=== PATIENT | female | born 1980 | race Caucasian/White ===

== ENCOUNTER 2017-02-22 19:05 | Inpatient (IN) | payer SELFPAY ==
[~2017-02-22] VITALS: Ht 172.7 cm; Wt 73.1 kg
[2017-02-22] MEDS ORDERED: FLUO40CA PO (21:08)
[2017-02-22] MEDS ORDERED: TRAM50TA2 PO (21:08)
[2017-02-22] MEDS ORDERED: LEVO125T3 PO (21:15)
[2017-02-22 21:28] LABS: MEAN CORPUSCULAR HEMOGLOBIN 33.8 pg (27.0-33.0); MEAN CORPUSCULAR HGB CONC 35.1 g/dl (32.0-36.5); MEAN CORPUSCULAR VOLUME 96.1 fl (80.0-96.0); RED CELL DISTRIBUTION WIDTH 12.9 % (11.5-14.5); WHITE BLOOD COUNT 4.9 K/mm3 (4.0-10.0)
[2017-02-22 21:32] LABS: METHADONE URINE NEGATIVE (NEGATIVE)
[2017-02-22 21:46] LABS: CONTROL LINE HCG INT CTR LINE PRESENT
[2017-02-22 22:00] LABS: ALBUMIN 4.2 GM/DL (3.2-5.2); ALBUMIN/GLOBULIN RATIO 1.27 (1.00-1.93); ALKALINE PHOSPHATASE 66 U/L (45-117); ALT/SGPT 20 U/L (12-78); ANION GAP 12 MEQ/L (8-16); AST/SGOT 16 U/L (15-37); BILIRUBIN,DIRECT 0.1 MG/DL (0.0-0.2); BILIRUBIN,TOTAL 0.3 MG/DL (0.2-1.0); BLOOD UREA NITROGEN 10 MG/DL (7-18); CALCIUM LEVEL 8.8 MG/DL (8.5-10.1); CARBON DIOXIDE LEVEL 22 MEQ/L (21-32); CHLORIDE LEVEL 109 MEQ/L (98-107); CREATININE FOR GFR 1.06 MG/DL (0.55-1.02); GLOMERULAR FILTRATION RATE > 60.0 (>60); GLUCOSE, FASTING 87 MG/DL (70-105); POTASSIUM SERUM 3.7 MEQ/L (3.5-5.1); SODIUM LEVEL 143 MEQ/L (136-145); TOTAL PROTEIN 7.5 GM/DL (6.4-8.2)
[2017-02-22] MEDS ORDERED: MOM 30ML SUSPENSION UDC PO PRN (23:45)
[2017-02-22] MEDS ORDERED: MAALOX 30 ML SUSP *UDC PO PRN (23:45)
[2017-02-22] MEDS ORDERED: ACETAMINOPHEN TAB 650MG DOSE (2X325MG) PO PRN (23:45)
[2017-02-22] MEDS ORDERED: traZODone 50 MG TAB PO PRN (23:45)
[2017-02-23] MEDS ORDERED: TRAZ50TA4 PO (00:21)
[2017-02-23] MEDS ORDERED: [UNRECOGNIZED DRUG - CODE] PO (00:21)
[2017-02-23] MEDS ORDERED: ASPIRIN 325 MG TAB PO PRN (01:15)
[2017-02-23] MEDS: traMADol 50 MG TAB PO SCH ×2 (01:34→20:56)
[2017-02-23 01:43] VITALS: BP 134/91
[2017-02-23] MEDS: LEVOTHYROXINE 0.125 MG TAB (125 MCG) PO SCH (06:14)
[2017-02-23] MEDS: FLUoxetine 20 MG CAP PO SCH (09:17)
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
[2017-02-23] MEDS ORDERED: MUPIROCIN 2% OINT 22 GM TUBE TOP PRN (11:15)
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
[2017-02-23 18:00] VITALS: BP 129/78
[2017-02-23] MEDS: GABAPENTIN 100 MG CAP PO SCH ×2 (18:06→20:55)
[2017-02-23] MEDS: MIRTAZAPINE 7.5MG PER 1/2 TABLET PO SCH (20:55)
[2017-02-24] MEDS: LEVOTHYROXINE 0.125 MG TAB (125 MCG) PO SCH (06:29)
[2017-02-24 07:13] VITALS: BP 138/85
--- NOTE | 2017-02-24 08:05 | ECGEPIP ---
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
[2017-02-24] MEDS: GABAPENTIN 100 MG CAP PO SCH ×3 (08:11→20:56)
[2017-02-24] MEDS: FLUoxetine 20 MG CAP PO SCH (08:11)
[2017-02-24 18:00] VITALS: BP 127/84
[2017-02-24] MEDS: MIRTAZAPINE 7.5MG PER 1/2 TABLET PO SCH (20:56)
[2017-02-24] MEDS: traMADol 50 MG TAB PO SCH (20:57)
[2017-02-25] MEDS: LEVOTHYROXINE 0.125 MG TAB (125 MCG) PO SCH (06:07)
[2017-02-25 06:49] VITALS: BP 129/84
[2017-02-25] MEDS: GABAPENTIN 100 MG CAP PO SCH ×3 (08:55→20:41)
[2017-02-25] MEDS: FLUoxetine 20 MG CAP PO SCH (08:55)
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
[2017-02-25 18:00] VITALS: BP 128/83
--- NOTE | 2017-02-25 19:54 | IPN ---
DATE: 02/25/2017 Patient is in good mood. Eye contact is good. No difficulties with appetite or sleep. No significant complaints. Patient wanting to know her discharge plans. MENTAL STATUS EXAMINATION: Her speech is normal. Thought process is intact. No loose associations. No abnormal psychotic thoughts. Judgment and insight improved. Orientation full in three spheres. Recent and remote memory intact. Attention and concentration intact. No disturbance of language. Full fund of knowledge. Mood improved. Affect bright. DIAGNOSIS: Major depressive illness. DISCHARGE PLANNING: As per Megan Sainz.
[2017-02-25] MEDS: MIRTAZAPINE 7.5MG PER 1/2 TABLET PO SCH (20:41)
[2017-02-25] MEDS: traMADol 50 MG TAB PO SCH (20:42)
[2017-02-26 06:12] VITALS: BP 115/67
[2017-02-26] MEDS: LEVOTHYROXINE 0.125 MG TAB (125 MCG) PO SCH (06:21)
[2017-02-26] MEDS: GABAPENTIN 100 MG CAP PO SCH ×2 (08:06→15:48)
[2017-02-26] MEDS: FLUoxetine 20 MG CAP PO SCH (08:06)
--- NOTE | 2017-02-26 14:09 | IPNPDOC ---
[facility] Progress Note Progress Note DATE OF SERVICE: 02/26/17 HISTORY: Patient is a 36-year-old female, who was brought in to [facility] ER by the [facility] police who found patient fully clothed in a bathtub with a razor blade and superficial cuts to her right wrist. Patient informed ER staff that she is an [employer] and has been diagnosed with PTSD, indicated SIB is a means to release stress for her. Patient indicates she feels better today, notes she participated in some groups over the weekend and feels she had time to "think about things," and is indicating she has decided to go with sister back to [place] and take her son to stay indefinitely. Patient denies symptoms of depression, rates anxiety 2/10 , denies suicidal and homicidal ideation, denies audiovisual hallucinations, denies urge to engage in self-injurious behavior. Patient informs promotion writer she is sleeping "much better," indicates Remeron is effective and she reports reduction to nightmare symptoms, continues to deny prazosin med trial in effort to control symptoms. Patient states gabapentin has been effective in controlling symptoms of anxiety, is today requesting to take medication on PRN basis noting she does not feel she needs to take medication 3 times per day. Patient denies all symptoms of chest pain, palpitations, shortness of breath, dizziness, headache. Patient reports improvement energy level, notes appetite is stable, and denies challenges with concentration and focus. Patient denies physical pain time of interaction and presents with no signs of acute distress. VITALS: See below NEW TEST RESULTS: No new results PAST MEDICAL/SURGICAL HISTORY: Tonsillectomy, tubal ligation, uterine ablation, history of TBI 8 years ago as a result of training injury, chronic headaches, hypothyroidism, history of prolonged QT syndrome. Lab results at time of admission indicated low RBCs and elevated MCV, MCH, chloride, creatinine. Patient has superficial laceration to right forearm HCG negative UDS negative, EtoH .077 02/24/17 EKG Normal sinus rhythm with PVC Left ventricular hypertrophy with repolarization abnormality Comparison tracing not on file MENTAL STATUS EXAMINATION: General appearance: Patient is a -year old female, who is pleasant and cooperative, makes good eye contact today, exhibits good personal hygiene and is dressed in hospital clothing, and relates with steady gait, appears stated age. Speech: Of normal rate, rhythm, volume, spontaneous, coherent Thought processes: Linear, logical, goal-directed Thought content: Rational, logical. Abstract reasoning and computation: Appears intact. Description of associations: Intact. Description of abnormal or psychotic thoughts: Denies suicidal or homicidal ideation, denies auditory or visual hallucinations, does not appear to be responding to internal stimuli. Patient does not appear to be experiencing bizarre or paranoid ideation, and denies preoccupation with violence or obsessions. Judgment: Appears adequate, has improved during treatment Insight: Is improving with treatment, appears adequate Orientation: A and O 3. Recent and remote memory: Appears intact. Attention span and concentration: Adequate. Fund of knowledge: Adequate. Mood: "Much better, pretty good." Patient appears noticeably less depressed, is more relaxed and less anxious, no mood lability noted Affect: Constricted but brightens, congruent with mood. DIAGNOSES: MDD, recurrent, moderate, rule out alcohol use disorder, rule out PTSD, rule out anxiety disorder ASSESSMENT: Patient continues to adjust to unit, has been more visible and has been attending some groups. Patient has been pleasant and cooperative and has presented with no behavior management challenges. Patient continues to take Prozac which was prescribed by [facility], notes medication is effective now that she is getting regular sleep with utilization of Remeron, denies medication side effects. Patient has also been taking gabapentin TID which she is today requesting to be changed to a PRN order due to feeling she does not need to take the medication as often. Patient again climbs prazosin trial in effort to reduce nightmare symptoms, indicates she will address with outpatient provider if she feels is needed. Patient denies suicidal and homicidal ideation and is able to verbalize how to access supportive services on the unit if needed. Will monitor patient's response to medications and monitor for side effects. Will also evaluate patient's safety, resolution of suicidal ideation, and discharge readiness. Patient indicates her sister has arrived from [place] and verifies that discharge plan is now for her to return to [place] with her son and sister upon discharge. Patient was informed that discharge is tentatively scheduled for Sunday in effort to further stabilize patient on medications and to allow transaction coordinator to ensure that outpatient services are in place for patient at [facility]. Patient indicates she is comfortable with plan. Will continue to monitor patient's response to medications and monitor for side effects, will evaluate patient's safety, resolution of SIB/SI, and we' ll begin to prepare patient for discharge on Sunday. MANAGEMENT PLAN: Continue Prozac 40 mg po q am and Remeron 7.5 mg q hs. Change gabapentin to 100 mg po TID PRN anxiety Maintain safety precautions Patient to attend groups and participate in unit programming to develop coping strategies Engage patient in discharge planning process and arrange meeting with support system to ensure safe discharge planning when appropriate Patient to follow up with PCM upon discharge TIME SPENT: 35 minutes Vital Signs Vital Signs Date Time Temp Pulse Resp B/P (MAP) Pulse Ox O2 Delivery O2 Flow Rate FiO2 02/26/17 06:12 99.1 54 16 115/67 (83) Room Air 02/22/17 23:58 96 Current Medications Current Medications Acetaminophen (Tylenol Tab) 650 mg Q6HP PRN PO HEADACHE or DISCOMFORT Last administered on 02/24/17 15:33; Start 02/22/17 at 23:45; Stop 03/24/17 at 23:44 Al Hydrox/Mg Hydrox/Simethicone (Mylanta) 30 ml Q4HP PRN PO HEARTBURN/ INDIGESTION; Start 02/22/17 at 23:45; Stop 03/24/17 at 23:44 Aspirin (Aspirin) 650 mg Q4HP PRN PO PAIN Last administered on 02/23/17 01:34 ; Start 02/23/17 at 01:15; Stop 03/25/17 at 01:14 Fluoxetine HCl (PROzac) 40 mg DAILY PO Last administered on 02/26/17 08:06; Start 02/23/17 at 09:00; Stop 03/25/17 at 08:59 Gabapentin (Neurontin) 100 mg TID PO Last administered on 02/26/17 08:06; Start 02/23/17 at 16:00; Stop 03/25/17 at 15:59 Home Med (Med Rec Complete!) ASDIRECTED XX ; Start 02/23/17 at 00:30; Stop at 01:11; Status DC Levothyroxine Sodium (Synthroid) 0.125 mg DAILY@06 PO Last administered on 06:21; Start 02/23/17 at 06:00; Stop 03/25/17 at 05:59 Magnesium Hydroxide (Milk Of Magnesia) 30 ml DAILYPRN PRN PO CONSTIPATION; Start 02/22/17 at 23:45; Stop 03/24/17 at 23:44 Mirtazapine (Remeron) 7.5 mg QHS PO Last administered on 02/25/17 20:41; Start 02/23/17 at 21:00; Stop 03/25/17 at 20:59 Mupirocin (Bactroban 2% Ointment) APPLY TO RT FOREARM BID PRN TOP REDNESS/ IRRITATION Last administered on 02/23/17 18:08; Start 02/23/17 at 11:15; Stop 03/25/17 at 11:14 Tramadol HCl (Ultram) 50 mg QHS PO Last administered on 02/25/17 20:42; Start 02/22/17 at 21:00; Stop 03/01/17 at 20:59 Trazodone HCl (Desyrel) 50 mg QHSP PRN PO INSOMNIA; Start 02/22/17 at 23:45; Stop 02/23/17 at 17:45; Status DC Allergies Coded Allergies: Lamotrigine (Verified Allergy, Intermediate, rash, 02/22/17) Valproic Acid (Verified Allergy, Intermediate, N/V, 02/22/17) Megan Sainz February 26, 2017 14:09
[2017-02-26 18:00] VITALS: BP 114/67
[2017-02-26] MEDS: MIRTAZAPINE 7.5MG PER 1/2 TABLET PO SCH (21:17)
[2017-02-26] MEDS: traMADol 50 MG TAB PO SCH (21:17)
[2017-02-26] MEDS: GABAPENTIN 100 MG CAP PO PRN (21:45)
[2017-02-27 06:11] VITALS: BP 113/60
[2017-02-27] MEDS: LEVOTHYROXINE 0.125 MG TAB (125 MCG) PO SCH (06:33)
[2017-02-27] MEDS: FLUoxetine 20 MG CAP PO SCH (08:37)
[2017-02-27] MEDS: GABAPENTIN 100 MG CAP PO PRN ×3 (08:37→20:48)
--- NOTE | 2017-02-27 09:12 | IPNPDOC ---
[facility] Progress Note Progress Note DATE OF SERVICE: 02/27/17 HISTORY: Patient is a 36-year-old female, who was brought in to [facility] ER by the [facility] police who found patient fully clothed in a bathtub with a razor blade and superficial cuts to her right wrist. Patient informed ER staff that she is [employer] and has been diagnosed with PTSD, indicated SIB is a means to release stress for her. Patient indicates she continues to experience improvement in symptoms of anxiety and depression, is participating in most groups, states today she feels she is prepared for discharge tomorrow. Patient rates current anxiety level as 6 /10, depression 3/10, denies suicidal and homicidal ideation, denies audiovisual hallucinations, denies urge to engage in self-injurious behavior. Patient indicates she continues to sleep well on Remeron, reports reduction in nightmare symptoms, has been utilizing gabapentin PRN to address symptoms of anxiety, indicates current medication regimen is effective and she denies medication side effects. Patient continues to deny need for prazosin in effort to control nightmare symptoms. EKG results were reviewed with patient who denies symptoms of chest pain, palpitations, shortness of breath, dizziness, headache. Patient reports improvement energy level, notes appetite is stable, and denies challenges with concentration and focus. Patient denies physical pain time of interaction and presents with no signs of acute distress. VITALS: See below NEW TEST RESULTS: No new results PAST MEDICAL/SURGICAL HISTORY: Tonsillectomy, tubal ligation, uterine ablation, history of TBI 8 years ago as a result of training injury, chronic headaches, hypothyroidism, history of prolonged QT syndrome. Lab results at time of admission indicated low RBCs and elevated MCV, MCH, chloride, creatinine. Patient has superficial laceration to right forearm HCG negative UDS negative, EtoH .077 02/24/17 EKG Normal sinus rhythm with PVC Left ventricular hypertrophy with repolarization abnormality Comparison tracing not on file, clinical consult completed, patient to follow-up with outpatient provider. MENTAL STATUS EXAMINATION: General appearance: Patient is a 36-year old female, who is pleasant and cooperative, makes good eye contact today, exhibits good personal hygiene and is dressed in hospital clothing, and relates with steady gait, appears stated age. Speech: Of normal rate, rhythm, volume, spontaneous, coherent Thought processes: Linear, logical, goal-directed Thought content: Rational, logical. Abstract reasoning and computation: Appears intact. Description of associations: Intact. Description of abnormal or psychotic thoughts: Denies suicidal or homicidal ideation, denies auditory or visual hallucinations, does not appear to be responding to internal stimuli. Patient does not appear to be experiencing bizarre or paranoid ideation, and denies preoccupation with violence or obsessions. Judgment: Appears adequate, has improved during treatment Insight: Is improving with treatment, appears adequate Orientation: A and O 3. Recent and remote memory: Appears intact. Attention span and concentration: Adequate. Fund of knowledge: Adequate. Mood: "Much better." Patient appears less anxious and less depressed, no mood lability noted Affect: Constricted but brightens, congruent with mood. DIAGNOSES: MDD, recurrent, moderate, rule out alcohol use disorder, rule out PTSD, rule out anxiety disorder ASSESSMENT: Patient continues to adjust to unit, has been more visible and has been attending some groups. Patient has been pleasant and cooperative and has presented with no behavior management challenges. Patient indicates current medication regimen is effective and she denies medication side effects. Patient denies suicidal and homicidal ideation and is able to verbalize how to access supportive services on the unit if needed. Will continue to monitor patient's response to medications and monitor for side effects. Will also evaluate patient 's safety, resolution of suicidal ideation, and discharge readiness. Patient's sister has arrived from [place] and regional coordinator is attempting to confirm discharge plan, patient indicates plan remains for her to discharge with son back to [place] with sister where she will stay at least through the summer and we'll then decide if she is going to remain in [place] with sister or return to [place] to her boyfriend. direct mail coordinator is attempting to arrange case management, outpatient psychotherapy, and medication management services through [facility] in [place]. Patient's discharge is tentatively scheduled for tomorrow and patient states she remains comfortable with plan, feels she is prepared for discharge. Will continue to monitor patient's response to medications and monitor for side effects, will evaluate patient's safety, resolution of SIB/SI, and we'll begin to prepare patient for discharge on Sunday. MANAGEMENT PLAN: Continue Prozac 40 mg po q am, Remeron 7.5 mg q hs, and gabapentin 100 mg po TID PRN anxiety Maintain safety precautions Patient to attend groups and participate in unit programming to develop coping strategies Engage patient in discharge planning process and arrange meeting with support system to ensure safe discharge planning when appropriate Patient to follow up with PCM upon discharge TIME SPENT: 35 minutes Vital Signs Vital Signs Date Time Temp Pulse Resp B/P (MAP) Pulse Ox O2 Delivery O2 Flow Rate FiO2 02/27/17 06:11 97.9 51 16 113/60 (77) Room Air 02/22/17 23:58 96 Current Medications Current Medications Acetaminophen (Tylenol Tab) 650 mg Q6HP PRN PO HEADACHE or DISCOMFORT Last administered on 02/24/17 15:33; Start 02/22/17 at 23:45; Stop 03/24/17 at 23:44 Al Hydrox/Mg Hydrox/Simethicone (Mylanta) 30 ml Q4HP PRN PO HEARTBURN/ INDIGESTION; Start 02/22/17 at 23:45; Stop 03/24/17 at 23:44 Aspirin (Aspirin) 650 mg Q4HP PRN PO PAIN Last administered on 02/23/17 01:34 ; Start 02/23/17 at 01:15; Stop 03/25/17 at 01:14 Fluoxetine HCl (PROzac) 40 mg DAILY PO Last administered on 02/27/17 08:37; Start 02/23/17 at 09:00; Stop 03/25/17 at 08:59 Gabapentin (Neurontin) 100 mg TID PO Last administered on 02/26/17 15:48; Start 02/23/17 at 16:00; Stop 02/26/17 at 18:08; Status DC Gabapentin (Neurontin) 100 mg TIDP PRN PO anxiety Last administered on 08:37; Start 02/26/17 at 16:00; Stop 03/28/17 at 15:59 Home Med (Med Rec Complete!) ASDIRECTED XX ; Start 02/23/17 at 00:30; Stop at 01:11; Status DC Levothyroxine Sodium (Synthroid) 0.125 mg DAILY@06 PO Last administered on 06:33; Start 02/23/17 at 06:00; Stop 03/25/17 at 05:59 Magnesium Hydroxide (Milk Of Magnesia) 30 ml DAILYPRN PRN PO CONSTIPATION; Start 02/22/17 at 23:45; Stop 03/24/17 at 23:44 Mirtazapine (Remeron) 7.5 mg QHS PO Last administered on 02/26/17 21:17; Start 02/23/17 at 21:00; Stop 03/25/17 at 20:59 Mupirocin (Bactroban 2% Ointment) APPLY TO RT FOREARM BID PRN TOP REDNESS/ IRRITATION Last administered on 02/23/17 18:08; Start 02/23/17 at 11:15; Stop 03/25/17 at 11:14 Tramadol HCl (Ultram) 50 mg QHS PO Last administered on 02/26/17 21:17; Start 02/22/17 at 21:00; Stop 03/01/17 at 20:59 Trazodone HCl (Desyrel) 50 mg QHSP PRN PO INSOMNIA; Start 02/22/17 at 23:45; Stop 02/23/17 at 17:45; Status DC Allergies Coded Allergies: Lamotrigine (Verified Allergy, Intermediate, rash, 02/22/17) Valproic Acid (Verified Allergy, Intermediate, N/V, 02/22/17) Megan Sainz February 27, 2017 09:12
[2017-02-27] MEDS ORDERED: MIRT15TA3 PO (16:08)
[2017-02-27] MEDS ORDERED: FLUO20CA9 PO (16:08)
[2017-02-27] MEDS ORDERED: GABA-279 PO (16:08)
[2017-02-27 18:00] VITALS: BP 108/75
[2017-02-27] MEDS: MIRTAZAPINE 7.5MG PER 1/2 TABLET PO SCH (20:47)
[2017-02-27] MEDS: traMADol 50 MG TAB PO SCH (20:48)
[2017-02-28] MEDS: LEVOTHYROXINE 0.125 MG TAB (125 MCG) PO SCH (05:39)
[2017-02-28 06:20] VITALS: BP 137/61
[2017-02-28] MEDS: FLUoxetine 20 MG CAP PO SCH (08:35)
[2017-02-28] MEDS: GABAPENTIN 100 MG CAP PO PRN (08:36)
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
== END 2017-02-28 11:05 | disposition home or self-care (01) | DRG 751 ==
LOC: M ED 20:26 → M ED INP 23:38 → M PSY 02-23 00:15
PROVIDERS: ADMIT Psychiatry & Neurology Psychiatry; ATTEND Psychiatry & Neurology Psychiatry
DX: F33.1 Major depressive disorder, recurrent, moderate (principal); E03.9 Hypothyroidism, unspecified; F10.10 Alcohol abuse, uncomplicated; F43.10 Post-traumatic stress disorder, unspecified; F41.9 Anxiety disorder, unspecified; Z79.899 Other long term (current) drug therapy; Z88.8 Allergy status to other drugs, medicaments and biological substances; G47.00 Insomnia, unspecified; R51 Headache

== ENCOUNTER 2017-06-25 19:09 | Emergency (ER) | payer OTHER, SELFPAY ==
[~2017-06-25] VITALS: Ht 172.7 cm; Wt 75.0 kg
[~2017-06-25 19:09] MED LIST: FLUO20CA19 PO; FLUO40CA PO; GABA-279 PO; LEVO125T4 PO; MIRT15TA3 PO; TRAM50TA2 PO; TRAZ50TA11 PO; [UNRECOGNIZED DRUG - CODE] PO
[2017-06-25] MEDS ORDERED: CLON-412 PO (19:21)
[2017-06-25] MEDS ORDERED: BUPR75TA5 PO (19:21)
[2017-06-25] MEDS ORDERED: NS 1,000 ML IV SCH (19:49)
[2017-06-25] MEDS ORDERED: PANTOPRAZOLE 40MG INJ (PROTONIX) (C9113) IV ONE (20:00)
[2017-06-25] MEDS ORDERED: ASPIRIN 81 MG CHEW TABLET PO ONE (20:00)
[2017-06-25 20:48] LABS: BASO % 0.6 % (0.0-1.0); EOS % 0.5 % (0.0-3.0); INR 1.05; LARGE UNSTAINED CELL # 0.1 K/mm3 (0.0-0.4); LARGE UNSTAINED CELL % 1.1 % (0.0-4.0); LYMPH # 1.1 K/mm3 (1.5-4.5); LYMPH % 17.9 % (24.0-44.0); MEAN CORPUSCULAR HEMOGLOBIN 31.9 pg (27.0-33.0); MEAN CORPUSCULAR HGB CONC 32.9 g/dl (32.0-36.5); MEAN CORPUSCULAR VOLUME 97.1 fl (80.0-96.0); MONO # 0.2 K/mm3 (0.0-0.8); MONO % 3.3 % (0.0-5.0); NEUTROPHILS # 4.5 K/mm3 (1.8-7.7); NEUTROPHILS % 76.5 % (36.0-66.0); PLATELET COUNT, AUTOMATED 228 k/mm3 (150-450); RED CELL DISTRIBUTION WIDTH 12.8 % (11.5-14.5); WHITE BLOOD COUNT 5.8 K/mm3 (4.0-10.0)
[2017-06-25 20:52] LABS: CONTROL LINE HCG INT CTR LINE PRESENT
[2017-06-25 21:04] LABS: ALBUMIN 4.8 GM/DL (3.2-5.2); ALBUMIN/GLOBULIN RATIO 1.45 (1.00-1.93); ALKALINE PHOSPHATASE 55 U/L (45-117); ALT/SGPT 35 U/L (12-78); ANION GAP 20 MEQ/L (8-16); AST/SGOT 48 U/L (15-37); BILIRUBIN,DIRECT 0.1 MG/DL (0.0-0.2); BILIRUBIN,TOTAL 0.4 MG/DL (0.2-1.0); BLOOD UREA NITROGEN 14 MG/DL (7-18); CALCIUM LEVEL 10.4 MG/DL (8.5-10.1); CARBON DIOXIDE LEVEL 17 MEQ/L (21-32); CHLORIDE LEVEL 106 MEQ/L (98-107); CREATININE FOR GFR 1.05 MG/DL (0.55-1.02); GLOMERULAR FILTRATION RATE > 60.0 (>60); GLUCOSE, FASTING 58 MG/DL (70-105); POTASSIUM SERUM 3.7 MEQ/L (3.5-5.1); SODIUM LEVEL 143 MEQ/L (136-145); TOTAL PROTEIN 8.1 GM/DL (6.4-8.2)
[2017-06-25 21:13] LABS: METHADONE URINE NEGATIVE (NEGATIVE)
[2017-06-25] MEDS ORDERED: PROT1TAB2 PO (21:40)
--- NOTE | 2017-06-25 21:43 | REP ---
Clinical: Chest pain . Comparison: None . Technique: PA and lateral. Findings: The mediastinum and cardiac silhouette are normal. The lung drake are clear and without acute consolidation, effusion, or pneumothorax. The skeletal structures are intact and normal. Impression: 1. No acute cardiopulmonary process. Signed by Jaziel Sanchez MD 06/25/2017 09:35 P
[2017-06-25 21:44] VITALS: BP 129/79
--- NOTE | 2017-06-28 09:13 | ECGEPIP ---
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
== END 2017-06-25 23:08 | disposition home or self-care (01) ==
LOC: M ED 19:09
DX: R09.1 Pleurisy (principal); R06.02 Shortness of breath; E07.9 Disorder of thyroid, unspecified; Z79.899 Other long term (current) drug therapy; Z88.8 Allergy status to other drugs, medicaments and biological substances
CPT/HCPCS: 71020; 80048; 80076; 80307; 82550; 82553; 83690; 83880; 84484; 84703; 85025; 85610; 93005; 93041; 94760; 96374; 99284; C9113

== ENCOUNTER 2018-05-30 08:59 | Emergency (ER) | payer OTHER | END 2018-05-30 10:21 | disposition home or self-care (01) | LOC: M ED 08:59 | DX: S83.92XA Sprain of unspecified site of left knee, initial encounter (principal); X50.1XXA Overexertion from prolonged static or awkward postures, initial encounter; Y92.099 Unspecified place in other non-institutional residence as the place of occurrence of the external cause; Y93.02 Activity, running; Y99.9 Unspecified external cause status; M25.762 Osteophyte, left knee; R51 Headache; Z79.899 Other long term (current) drug therapy; Z88.8 Allergy status to other drugs, medicaments and biological substances | CPT/HCPCS: 73564 ==

== ENCOUNTER 2018-06-20 12:02 | Emergency (ER) | payer OTHER ==
[2018-06-20] MEDS: DERMABOND TOPICAL SKIN ADHESIVE TOP (12:50)
== END 2018-06-20 13:10 | disposition home or self-care (01) ==
LOC: M ED 12:02
DX: S61.214A Laceration without foreign body of right ring finger without damage to nail, initial encounter (principal); W26.0XXA Contact with knife, initial encounter; Y92.009 Unspecified place in unspecified non-institutional (private) residence as the place of occurrence of the external cause; Y93.9 Activity, unspecified; Y99.9 Unspecified external cause status
CPT/HCPCS: 12001